=== PATIENT | female | born 1945 | race Caucasian/White ===

== ENCOUNTER 2018-07-29 10:38 | Outpatient (REF) | payer MEDICARE, SELFPAY ==
[2018-07-29 21:48] LABS: Anion Gap 10.8 mmol/L (3-11); BUN 9 mg/dL (7-18); CO2 26.2 mmol/L (21.0-32.0); Calcium 8.4 mg/dL (8.5-10.1); Chloride 100 mmol/L (98-107); Cholesterol 274 mg/dL (50-200); Glucose 112 mg/dL (70-100); HDL Cholesterol 54 mg/dL (40-60); LDL CHOLESTEROL 190 mg/dL (<100); Potassium 4.5 mmol/L (3.5-5.1); Sodium 137 mmol/L (136-145); TSH (W/Ref FT4) 2.48 uIU/mL (0.358-3.74); Triglyceride 154 mg/dL (30-150)
[2018-07-31 06:34] LABS: Vitamin D 25 Total 69.2 ng/ml (30-100)
== END 2018-07-29 10:58 ==
LOC: NCHCN 10:38
PROVIDERS: PCP Family Medicine; Visit Provider Family Medicine
DX: I10 Essential (primary) hypertension (principal); E03.9 Hypothyroidism, unspecified; M85.80 Other specified disorders of bone density and structure, unspecified site
CPT/HCPCS: 80048; 80061; 82306; 83721; 84443

== ENCOUNTER 2019-08-11 09:11 | Outpatient (REF) | payer MEDICARE, SELFPAY ==
[2019-08-11 21:22] LABS: Calculated LDL 149 mg/dL (<100); Cholesterol 233 mg/dL (<200); HDL Cholesterol 52 mg/dL (40-60); TSH 1.61 uIU/mL (0.36-3.74); Triglyceride 163 mg/dL (<150)
== END 2019-08-11 09:31 ==
LOC: NCHCN 09:11
PROVIDERS: PCP Family Medicine; Visit Provider Family Medicine
DX: E78.5 Hyperlipidemia, unspecified (principal); E03.9 Hypothyroidism, unspecified; R03.0 Elevated blood-pressure reading, without diagnosis of hypertension
CPT/HCPCS: 80061; 84443

== ENCOUNTER 2020-09-07 15:43 | Outpatient (REF) | payer MEDICARE, SELFPAY ==
[2020-09-07 14:45] LABS: TSH 3.06 uIU/mL (0.36-3.74)
== END 2020-09-07 15:44 | disposition home or self-care (01) ==
LOC: NCHCN 15:43
PROVIDERS: PCP Family Medicine; Visit Provider Family Medicine
DX: E03.9 Hypothyroidism, unspecified (principal)
CPT/HCPCS: 84443

== ENCOUNTER 2021-11-14 18:17 | Outpatient (REF) | payer MEDICARE, SELFPAY ==
[2021-11-14 14:39] LABS: HCT 43.5 % (36.0-46.0); HGB 14.3 g/dL (11.2-15.7); MCH 31.2 pg (27.0-33.0); MCHC 32.9 % (32.0-36.0); MCV 95 fL (80-95); MPV 12.5 fL (8.0-11.0); Platelet Count 179 10^3/uL (130-400); RBC 4.58 10^6/uL (3.93-5.22); RDW 12.5 % (11.7-14.6); RDW-SD 43.8 fL; WBC 8.71 10^3/uL (4.4-10.8)
[2021-11-14 15:00] LABS: Anion Gap 6.4 mmol/L (3-11); BUN 13 mg/dL (7-18); CO2 29.6 mmol/L (21.0-32.0); CREATININE 0.8 mg/dL (0.55-1.02); Calcium 9.4 mg/dL (8.5-10.1); Calculated LDL 155 mg/dL (<100); Chloride 99 mmol/L (98-107); Cholesterol 241 mg/dL (<200); Estimated GFR 76.31 (mL/min/1.73m2); Glucose 102 mg/dL (74-106); HDL Cholesterol 60 mg/dL (40-60); Potassium 4.4 mmol/L (3.5-5.1); Sodium 135 mmol/L (136-145); TSH 2.48 uIU/mL (0.36-3.74); Triglyceride 131 mg/dL (<150)
== END 2021-11-14 18:18 | disposition home or self-care (01) ==
LOC: NCHCN 18:17
PROVIDERS: PCP Family Medicine; Visit Provider Family Medicine
DX: E78.5 Hyperlipidemia, unspecified (principal); R03.0 Elevated blood-pressure reading, without diagnosis of hypertension; E03.9 Hypothyroidism, unspecified; Z13.0 Encounter for screening for diseases of the blood and blood-forming organs and certain disorders involving the immune mechanism
CPT/HCPCS: 80048; 80061; 85027; 84443

== ENCOUNTER 2022-11-26 13:07 | Outpatient (REF) | payer MEDICARE, SELFPAY ==
[2022-11-26 16:04] LABS: Anion Gap 6.7 mmol/L (3-11); BUN 12 mg/dL (7-18); CO2 29.3 mmol/L (21.0-32.0); CREATININE 0.8 mg/dL (0.55-1.02); Calcium 9.5 mg/dL (8.5-10.1); Chloride 101 mmol/L (98-107); Estimated GFR 75.37 (mL/min/1.73m2); Glucose 103 mg/dL (74-106); Potassium 4.5 mmol/L (3.5-5.1); Sodium 137 mmol/L (136-145); TSH 2.34 uIU/mL (0.36-3.74)
== END 2022-11-26 13:08 | disposition home or self-care (01) ==
LOC: NCHCN 13:07
PROVIDERS: PCP Family Medicine; Visit Provider Family Medicine
DX: E03.9 Hypothyroidism, unspecified (principal)
CPT/HCPCS: 80048; 84443

== ENCOUNTER 2023-12-27 12:27 | Outpatient (REF) | payer MEDICARE, SELFPAY ==
[2023-12-27 14:43] LABS: TSH 2.34 uIU/mL (0.36-3.74)
== END 2023-12-27 12:28 | disposition home or self-care (01) ==
LOC: NCHCN 12:27
PROVIDERS: PCP Family Medicine; Visit Provider Family Medicine
DX: E03.9 Hypothyroidism, unspecified (principal)
CPT/HCPCS: 84443

== ENCOUNTER 2024-03-12 11:51 | Outpatient (REF) | payer MEDICARE, SELFPAY ==
[2024-03-12 16:36] LABS: Anion Gap 6.8 mmol/L (3-11); BUN 14 mg/dL (7-18); CO2 27.2 mmol/L (21.0-32.0); CREATININE 0.8 mg/dL (0.55-1.02); Calcium 9.4 mg/dL (8.5-10.1); Chloride 101 mmol/L (98-107); Glucose 102 mg/dL (74-106); Potassium 4.1 mmol/L (3.5-5.1); Sodium 135 mmol/L (136-145)
== END 2024-03-12 11:52 | disposition home or self-care (01) ==
LOC: NCHCN 11:51
PROVIDERS: PCP Family Medicine; Visit Provider Family Medicine
DX: I10 Essential (primary) hypertension (principal)
CPT/HCPCS: 80048

== ENCOUNTER 2024-11-10 17:44 | Outpatient (REF) | payer MEDICARE, SELFPAY ==
[2024-11-10 20:53] LABS: Anion Gap 5.1 mmol/L (3-11); BUN 18 mg/dL (7-18); CO2 28.9 mmol/L (21.0-32.0); Calcium 8.9 mg/dL (8.5-10.1); Chloride 100 mmol/L (98-107); Estimated GFR 65.03 (mL/min/1.73m2); Glucose 192 mg/dL (74-106); Potassium 5.1 mmol/L (3.5-5.1); Sodium 134 mmol/L (136-145); TSH 2.27 uIU/mL (0.36-3.74)
== END 2024-11-10 17:45 | disposition home or self-care (01) ==
LOC: NCHCN 17:44
PROVIDERS: PCP Family Medicine; Visit Provider Family Medicine
DX: E03.9 Hypothyroidism, unspecified (principal)
CPT/HCPCS: 80048; 84443